=== PATIENT | male | born 1975 | race Two or more races ===

== ENCOUNTER 2023-11-18 07:34 | Outpatient (CLI) | payer OTHER, SELFPAY ==
--- NOTE | ~2023-11-18 | US_ITS ---
Abdominal Sonogram: Real-time sonographic imaging of the abdomen was performed. Clinical History: Abdominal pain Findings: The liver appears echogenic, with no evidence of mass lesion or bile duct dilatation. Main portal vein demonstrates normal direction of flow. The spleen is normal in size without evidence of focal lesion. The gallbladder is well distended, and appears normal with no evidence of gallstone or wall thickening. The common bile duct measures 3 mm. The visualized pancreas, aorta, and IVC are un remarkable. The right kidney measures 10.0 cm in length and the left kidney measures 9.9 cm. There is no hydronephrosis or renal calculus. Impression: Diffuse fatty infiltration of the liver. Reviewed, dictated and finalized at location . Impression: Diffuse fatty infiltration of the liver.
== END 2023-11-18 07:35 ==
LOC: MICIMG 07:35
PROVIDERS: PCP Family Medicine; Visit Provider Student in an Organized Health Care Education/Training Program
DX: K76.0 Fatty (change of) liver, not elsewhere classified (principal)
CPT/HCPCS: 76700

== ENCOUNTER 2023-12-11 09:50 | Outpatient (CLI) | payer OTHER, SELFPAY ==
[2023-12-11 14:39] LABS: Alanine Aminotransferase 33 U/L (6-50); Albumin Level 4.4 g/dL (3.5-5.1); Alkaline Phosphatase 45 U/L (38-126); Aspartate Amino Transferase 50 U/L (17-59); Bilirubin,Total 0.3 mg/dL (0.2-1.3)
== END 2023-12-11 09:51 | disposition home or self-care (01) ==
LOC: ANHGOSHLAB 09:51
PROVIDERS: PCP Family Medicine; Visit Provider Family Medicine
DX: R10.13 Epigastric pain (principal)
CPT/HCPCS: 36415; 80076

== ENCOUNTER 2024-01-27 00:24 | Day surgery (SDC) | payer OTHER, SELFPAY ==
[2024-01-11 12:21] VITALS: BMI 25.6
[2024-01-27 06:48] VITALS: BP 134/88; PULSE 69; RESP 18; TEMP 36; O2SAT 100; BMI 24.5
[2024-01-27] MEDS: LACTATED RINGERS 1,000 ML 150 ML IV CONT (07:13)
--- NOTE | 2024-01-27 07:47 | PM.HPGS ---
History of Present Illness History of Present Illness Consent: Risks, benefits, and alternatives have been discussed and questions answered. Patient agrees to proceed with procedure. Chief complaint: Dysphagia,abdominal pain, GERD, Adams. screening Narrative: Issa Kaur is a 48 year old male with intermittent abdominal pain, egd and colonoscopy 2020 with normal random colon bx and TI, had small size hyperplastic polyps in sigmoid, biopsy showed gastritis, no celiac. Review of Systems Review of Systems: All systems reviewed & are unremarkable except as noted in HPI and below PMFSH Past Medical History Medical History GERD (gastroesophageal reflux disease) Migraine JACINTA (obstructive sleep apnea) Family History Family History Mother Thyroid cancer Social History Social History (Updated 10/22/23 @ 07:37 by Delores Hunt) Social History: Caffeine-daily Smoking status: Never smoker Second hand tobacco smoke exposure: No Alcohol intake: current Drinks per week: 14 Alcohol use details: Beer, 2 per night Substance use: never Substance use type: does not use Do You Feel Safe in your Home?: Yes Lack of Transportation: No Lack of Food: Never True Current Housing: I Have Housing Concerned About Future Housing: No Difficulty Paying Gas/Electric Bills: No Difficulty Paying for Meds: No Currently Unemployed: No Education: Master's Degree or Higher Difficulty w/ Childcare or Family Care: No Living arrangements: with family Occupation/Education: retired Gender identity (if verbalized by the patient): Male Spiritual care concerns: No Agree to blood products: Yes Meds Home Medications and Allergies Home Medications Medication Instructions Recorded Confirmed Type esomeprazole magnesium 20 mg 40 mg PO DAILY 12/03/22 01/27/24 History capsule,delayed release (Nexium) cetirizine 10 mg tablet 10 mg PO DAILY 10/22/23 01/27/24 History diclofenac sodium 1 % topical gel 2 g topical QID 10/22/23 01/27/24 History (Voltaren Arthritis Pain) multivit with minerals-iron 18 1 tablet PO DAILY 01/11/24 01/27/24 History mg-folic ac 400 mcg-vit K 25 mcg tablet (Adults Multivitamin) Allergies Allergy/AdvReac Type Severity Reaction Status Date / Time No Known Allergies Allergy Verified 01/27/24 06:56 Vital Signs Vital Signs - 24 hr 01/27/24 06:48 Temperature 96.8 F L Pulse Rate 69 Respiratory Rate 18 Blood Pressure 134/88 Pulse Oximetry 100 Oxygen Delivery Room Air Exam Const: General: comfortable and no acute distress HENMT: Face/Nose/Sinus: Normal nares present Eyes: General: appearance normal, both eyes and all related structures Neck: Neck: no JVD Resp: Auscultation: clear to auscultation bilaterally Cardio: Rate: regular rate Rhythm: regular rhythm GI: Inspection: non-distended GI Palp: Yes Soft to palpation Skin: General skin exam: normal color Neuro: General: gait normal Speech: normal speech Extrem: General: normal to inspection Psych: Mental Status: mental status grossly normal Assessment and Plan Assessment and plan (1) Abdominal pain: Qualifiers: Abdominal location: epigastric Qualified Code(s): R10.13 - Epigastric pain Code(s): R10.9 - Unspecified abdominal pain Status: Acute Assessment and Plan: egd and colonoscopy on ppi (2) Screening for colon cancer: Code(s): Z12.11 - Encounter for screening for malignant neoplasm of colon Status: Acute (3) GERD (gastroesophageal reflux disease): Qualifiers: Esophagitis presence: without esophagitis Qualified Code(s): K21.9 - Gastro-esophageal reflux disease without esophagitis Code(s): K21.9 - Gastro-esophageal reflux disease without esophagitis Status: Acute
--- NOTE | 2024-01-27 07:51 | WPDANESEPPF ---
Anes - Initial Pre Proc Eval Procedure: Operation Date: 01/27/24 08:00 Proposed Procedures p Esophagogastroduodenoscopy&Screen Colon - Laureano Glover MD Date/Time: 01/27/24 07:51 Surgeon: Laureano Glover MD Pre Op Diagnosis: Dysphagia,abdominal pain, GERD, Adams. screening Patient Data Age: 48 Gender: M Height: 1.68 m Weight: 68.9 kg Last Vital Signs Temp 96.8 F L 01/27/24 06:48 Pulse 69 01/27/24 06:48 Resp 18 01/27/24 06:48 BP 134/88 01/27/24 06:48 Pulse Ox 100 01/27/24 06:48 O2 Del Method Room Air 01/27/24 06:48 Allergies Allergy/AdvReac Type Severity Reaction Status Date / Time No Known Allergies Allergy Verified 01/27/24 06:56 Home Medications Medication Instructions Recorded Confirmed Type esomeprazole magnesium 20 mg 40 mg PO DAILY 12/03/22 01/27/24 History capsule,delayed release (Nexium) cetirizine 10 mg tablet 10 mg PO DAILY 10/22/23 01/27/24 History diclofenac sodium 1 % topical gel 2 g topical QID 10/22/23 01/27/24 History (Voltaren Arthritis Pain) multivit with minerals-iron 18 1 tablet PO DAILY 01/11/24 01/27/24 History mg-folic ac 400 mcg-vit K 25 mcg tablet (Adults Multivitamin) Patient hx anesthesia problems: none Family hx anesthesia problems: none Results Review: All pre-operative results and documents have been reviewed as part of the pre-operative evaluation. [facility] Past Medical History Medical History GERD (gastroesophageal reflux disease) Migraine JACINTA (obstructive sleep apnea) Family History Family History Mother Thyroid cancer Social History Social History (Updated 10/22/23 @ 07:37 by Delores Hunt) Social History: Caffeine-daily Smoking status: Never smoker Second hand tobacco smoke exposure: No Alcohol intake: current Drinks per week: 14 Alcohol use details: Beer, 2 per night Substance use: never Substance use type: does not use Do You Feel Safe in your Home?: Yes Lack of Transportation: No Lack of Food: Never True Current Housing: I Have Housing Concerned About Future Housing: No Difficulty Paying Gas/Electric Bills: No Difficulty Paying for Meds: No Currently Unemployed: No Education: Master's Degree or Higher Difficulty w/ Childcare or Family Care: No Living arrangements: with family Occupation/Education: retired Gender identity (if verbalized by the patient): Male Spiritual care concerns: No Agree to blood products: Yes Anes - Eval Final PreProcedure Day of Procedure 01/27/24 07:51 Patient weight: normal Heart: regular rate and rhythm Lungs: clear to auscultation Airway: Mallampati scale class II Neurological: alert and oriented Last oral intake: >/= 8 hours ASA classification: II Emergent: no Anesthetic plan: proceed Anesthesia type and monitoring: general GIVS and standard monitoring Results Review: All pre-operative results and documents have been reviewed as part of the pre-operative evaluation. Informed Consent: The patient's anesthetic plan and its attendant risks and benefits were discussed with the patient/family/POA. Questions were solicited and answers provided to the satisfaction of the patient/family/POA.
--- NOTE | 2024-01-27 08:08 | SUR.OPER ---
EGD START 075, END 0756 COLONOSCOPY START 800, END 08
[2024-01-27 08:11] VITALS: BP 96/60; PULSE 72; RESP 16; O2SAT 98
[2024-01-27 08:21] VITALS: BP 93/54; PULSE 68; RESP 15; O2SAT 98
[2024-01-27 08:31] VITALS: BP 122/84; PULSE 62; RESP 20; O2SAT 100
== END 2024-01-27 08:44 | disposition home or self-care (01) ==
PROVIDERS: PCP Family Medicine; Referring Provider Student in an Organized Health Care Education/Training Program; Visit Provider Internal Medicine Gastroenterology
PROC: 0DJ08ZZ Inspection of Upper Intestinal Tract, Via Natural or Artificial Opening Endoscopic (ICD-10-PCS; CPT 43235; principal; 2024-01-27 08:00)
DX: Z12.11 Encounter for screening for malignant neoplasm of colon (principal); K64.8 Other hemorrhoids; K29.50 Unspecified chronic gastritis without bleeding; K21.9 Gastro-esophageal reflux disease without esophagitis; G47.33 Obstructive sleep apnea (adult) (pediatric); Z80.8 Family history of malignant neoplasm of other organs or systems
CPT/HCPCS: 43239; 45378; 88305; J2003; J2704; J7120